=== PATIENT | male | born 1955 | race Caucasian/White ===

== ENCOUNTER 2021-04-25 08:06 | Emergency (ER) | payer BC ==
--- NOTE | 2021-04-25 08:32 | EDM.PDOC ---
ED HPI GENERAL MEDICAL PROBLEM - General Chief Complaint: Chest Pain Stated Complaint: CHEST PAIN Time Seen by Provider: 04/25/21 08:17 Source of Information: Reports: Patient History Limitations: Reports: No Limitations - History of Present Illness INITIAL COMMENTS - FREE TEXT/NARRATIVE: Patient is a 65-year-old male presents today for dizziness and not feeling right. States around 630 is morning he felt not right in his body and he felt dizziness and nausea. When asked he said he felt more lightheaded and dizzy his room was not spinning. States when he stood up he felt that the lightheadedness got worse. Denies any chest pain abdominal pain have any vomiting just nausea. Denies any decreased p.o. intake any diarrhea or other symptoms. - Related Data Allergies Allergy/AdvReac Type Severity Reaction Status Date / Time No Known Allergies Allergy Verified 04/25/21 08:12 Home Meds: Home Meds Ascorbate Calcium [Vitamin C] 1 tab PO DAILY 07/27/14 [History] Calcium Carb,Cit/D3/Phytostrol [Citracal D + Heart Health] 1 tab PO DAILY 07/27/14 [History] Glucosam/Chond/Collagen/Hyalur [Glucosamine Chondroitin] 1 tab PO DAILY 07/27/14 [History] Past Medical History - Past Health History Medical/Surgical History: Denies Medical/Surgical History - Infectious Disease History Infectious Disease History: Reports: Chicken Pox, Measles, Mumps ED ROS GENERAL - Review of Systems Review Of Systems: See Below Constitutional: Reports: No Symptoms HEENT: Reports: No Symptoms Respiratory: Reports: No Symptoms Cardiovascular: Reports: No Symptoms Endocrine: Reports: No Symptoms GI/Abdominal: Reports: No Symptoms : Reports: No Symptoms Musculoskeletal: Reports: No Symptoms Skin: Reports: No Symptoms Neurological: Reports: Dizziness Psychiatric: Reports: No Symptoms Hematologic/Lymphatic: Reports: No Symptoms Immunologic: Reports: No Symptoms ED EXAM, DIZZINESS - Physical Exam Exam: See Below Exam Limited By: No Limitations General Appearance: Alert, WD/WN, No Apparent Distress Eye Exam: Bilateral Eye: EOMI, PERRL Head Exam: Atraumatic Vertigo: No: reproducible Neck: Normal Inspection, Supple Respiratory/Chest: No Respiratory Distress, Lungs Clear, Normal Breath Sounds Cardiovascular: Normal Peripheral Pulses, Regular Rate, Rhythm GI/Abdominal: Normal Bowel Sounds, Soft, Non-Tender Neurological: Alert, Normal Mood/Affect, CN II-XII Intact, Oriented x 3 Back Exam: Normal Inspection Extremities: Normal Inspection, Normal Range of Motion, Non-Tender Psychiatric: Normal Affect #1 Interpretation EKG Date: 04/25/21 Time: 08:06 Rhythm: NSR Rate (Beats/Min): 73 ST-T: Normal Course - Vital Signs Last Recorded V/S: Last Vital Signs Temp 97.0 F 04/25/21 08:13 Pulse 73 04/25/21 08:13 Resp 18 04/25/21 08:13 BP 148/98 H 04/25/21 08:13 Pulse Ox 98 04/25/21 08:13 Orthostatic Blood Pressure [ 144/93 Standing] Orthostatic Blood Pressure [ 152/94 Sitting] Orthostatic Blood Pressure [ 135/79 Supine] - Orders/Labs/Meds Orders: Active Orders 24 hr Category Date Time Status Orthostatic Vital Signs [RC] ASDIRECTED Care 04/25/21 08:28 Active Labs: Laboratory Tests 04/25/21 04/25/21 04/25/21 Range/Units 08:15 08:20 08:20 WBC 7.23 (4.0-11.0) K/uL RBC 5.48 (4.50-5.90) M/uL Hgb 16.2 (13.0-17.0) g/dL Hct 47.8 (38.0-50.0) % MCV 87.2 (80.0-98.0) fL MCH 29.6 (27.0-32.0) pg MCHC 33.9 (31.0-37.0) g/dL RDW Std Deviation 44.6 (28.0-62.0) fl RDW Coeff of [place] 14 (11.0-15.0) % Plt Count 183 (150-400) K/uL MPV 9.10 (7.40-12.00) fL Neut % (Auto) 54.9 (48.0-80.0) % Lymph % (Auto) 31.7 (16.0-40.0) % [place] % (Auto) 8.4 (0.0-15.0) % Eos % (Auto) 4.6 (0.0-7.0) % Baso % (Auto) 0.4 (0.0-1.5) % Neut # (Auto) 4.0 (1.4-5.7) K/uL Lymph # (Auto) 2.3 (0.6-2.4) K/uL Valencia # (Auto) 0.6 (0.0-0.8) K/uL Eos # (Auto) 0.3 (0.0-0.7) K/uL Baso # (Auto) 0.0 (0.0-0.1) K/uL Nucleated RBC % 0.0 /100WBC Nucleated RBCs # 0 K/uL Sodium 142 (136-148) mmol/L Potassium 3.9 (3.5-5.1) mmol/L Chloride 105 (98-107) mmol/L Carbon Dioxide 26.2 (21.0-32.0) mmol/L BUN 9 (7.0-18.0) mg/dL Creatinine 1.0 (0.8-1.3) mg/dL Est Cr Clr Drug Dosing 81.91 mL/min Estimated GFR (MDRD) > 60.0 ml/min Glucose 113 H (74-106) mg/dL Lactic Acid (0.4-2.0) mmol/L Calcium 9.2 (8.5-10.1) mg/dL Phosphorus 2.6 (2.6-4.7) mg/dL Magnesium 2.4 (1.8-2.4) mg/dL Total Bilirubin 0.4 (0.2-1.0) mg/dL AST 23 (15-37) IU/L ALT 31 (14-63) IU/L Alkaline Phosphatase 87 (46-116) U/L Creatine Kinase 111 (26-308) U/L Troponin I < 0.050 (0.000-0.056) ng/mL Total Protein 8.1 (6.4-8.2) g/dL Albumin 3.6 (3.4-5.0) g/dL Globulin 4.5 H (2.6-4.0) g/dL Albumin/Globulin Ratio 0.8 L (0.9-1.6) Lipase 126 (73-393) U/L SARS-CoV-2 RNA (LYNSEY) NEGATIVE (NEGATIVE) 04/25/21 Range/Units 09:07 WBC (4.0-11.0) K/uL RBC (4.50-5.90) M/uL Hgb (13.0-17.0) g/dL Hct (38.0-50.0) % MCV (80.0-98.0) fL MCH (27.0-32.0) pg MCHC (31.0-37.0) g/dL RDW Std Deviation (28.0-62.0) fl RDW Coeff of Kat[place] (11.0-15.0) % Plt Count (150-400) K/uL MPV (7.40-12.00) fL Neut % (Auto) (48.0-80.0) % Lymph % (Auto) (16.0-40.0) % Valencia % (Auto) (0.0-15.0) % Eos % (Auto) (0.0-7.0) % Baso % (Auto) (0.0-1.5) % Neut # (Auto) (1.4-5.7) K/uL Lymph # (Auto) (0.6-2.4) K/uL Valencia # (Auto) (0.0-0.8) K/uL Eos # (Auto) (0.0-0.7) K/uL Baso # (Auto) (0.0-0.1) K/uL Nucleated RBC % /100WBC Nucleated RBCs # K/uL Sodium (136-148) mmol/L Potassium (3.5-5.1) mmol/L Chloride (98-107) mmol/L Carbon Dioxide (21.0-32.0) mmol/L BUN (7.0-18.0) mg/dL Creatinine (0.8-1.3) mg/dL Est Cr Clr Drug Dosing mL/min Estimated GFR (MDRD) ml/min Glucose (74-106) mg/dL Lactic Acid 1.7 (0.4-2.0) mmol/L Calcium (8.5-10.1) mg/dL Phosphorus (2.6-4.7) mg/dL Magnesium (1.8-2.4) mg/dL Total Bilirubin (0.2-1.0) mg/dL AST (15-37) IU/L ALT (14-63) IU/L Alkaline Phosphatase (46-116) U/L Creatine Kinase (26-308) U/L Troponin I (0.000-0.056) ng/mL Total Protein (6.4-8.2) g/dL Albumin (3.4-5.0) g/dL Globulin (2.6-4.0) g/dL Albumin/Globulin Ratio (0.9-1.6) Lipase (73-393) U/L SARS-CoV-2 RNA (LYNSEY) (NEGATIVE) - Re-Assessments/Exams Free Text/Narrative Re-Assessment/Exam: 04/25/21 10:58 Patient labs EKG reviewed. Patient never had chest pain while he was here just felt lightheaded with the orthostatics within normal limits. We also did a DVT study did show SVT patient started just to take Motrin as needed and patient will follow up with his PMD. Patient x-ray shows haziness however he recently wa s on antibiotics for pneumonia as could be residual from that patient has no white count no productive cough or fevers. Patient Covid also negative. Pt satting 100% on room air and looks well Departure - Departure Time of Disposition: 10:59 Disposition: Home, Self-Care 01 Condition: Good Clinical Impression: Lightheadedness, Thrombophlebitis - Discharge Information *PRESCRIPTION DRUG MONITORING PROGRAM REVIEWED*: Not Applicable *COPY OF PRESCRIPTION DRUG MONITORING REPORT IN PATIENT BRIA: Not Applicable Instructions: Dizziness, [id number], Thrombophlebitis Referrals: Zhao Casey MD [Primary Care Provider] - Forms: ED Department Discharge Additional Instructions: You were seen today for feeling lightheaded. We did labs EKG x-rays and also did a DVT study to rule out any clots in your legs. Labs and x-rays were normal your x-ray has some haziness but this could be due to some residual from the previous pneumonia you were treated for earlier. Your DVT study did show a superficial venous thrombosis which is with dermatitis and infection of your vein in your legs you can take Motrin for as needed. Recommend you follow-up to primary care physician and also a director of guidance in public schools as needed we have left numbers below for you to follow-up. The following information is given to patients seen in the emergency department who are being discharged to home. This information is to outline your options for follow-up care. We provide all patients seen in our emergency department wit h a follow-up referral. The need for follow-up, as well as the timing and circumstances, are variable depending upon the specifics of your emergency department visit. If you don't have a primary care physician on staff, we will provide you with a referral. We always advise you to contact your personal physician following an emergency department visit to inform them of the circumstance of the visit and for follow-up with them and/or the need for any referrals to a consulting specialist. The emergency department will also refer you to a specialist when appropriate. This referral assures that you have the opportunity for follow-up care with a specialist. All of these measure are taken in an effort to provide you with optimal care, which includes your follow-up. Under all circumstances we always encourage you to contact your private physician who remains a resource for coordinating your care. When calling for follow-up care, please make the office aware that this follow-up is from your recent emergency room visit. If for any reason you are refused follow-up, please contact the [facility] Emergency Department at and asked to speak to the emergency department charge nurse. Please follow up with your primary care physician. If you do not have a primary care physician, see below: [facility] [address] [place] [id number] [facility] [address] [place] [id number] [facility] [address] [place] [id number] Sepsis Event Note (ED) - Evaluation Sepsis Screening Result: No Definite Risk - Focused Exam Vital Signs: Vital Signs Temp Pulse Resp BP Pulse Ox 04/25/21 08:13 97.0 F 73 18 148/98 H 98 - My Orders Last 24 Hours: My Active Orders 04/25/21 08:28 Orthostatic Vital Signs [RC] ASDIRECTED - Assessment/Plan Last 24 Hours: My Active Orders 04/25/21 08:28 Orthostatic Vital Signs [RC] ASDIRECTED Plan: Patient is a 65-year-old male brought in today for dizziness and not feeling like himself. Patient has no chest pain. Patient EKG is sinus rhythm. On exam patient denies any signs of vertigo but does feel more lightheaded when he stands up. Will obtain labs EKG orthostatic blood pressure.
--- NOTE | 2021-04-25 09:15 | CR ---
Indication: Dizziness Comparison: None available. Technique: Single AP view chest Findings: There is hyperinflation and chronic interstitial change. There is questionable mild blunting of the costophrenic angles which may represent minimal pleural effusions with adjacent compressive atelectasis. There is mild central bronchial thickening. The cardiomediastinal silhouette is within normal limits. The bony thorax is grossly intact. Impression: Hyperinflation and chronic interstitial changes with questionable mild blunting of the left costophrenic angle which may represent a pleural effusion with adjacent compressive atelectasis. Dictated by Reymundo Godinez MD @ 04/25/2021 9:13:25 AM (Electronically Signed)
[2021-04-25 09:20] LABS: BLOOD UREA NITROGEN,BUN 9 mg/dL (7.0-18.0); CARBON DIOXIDE,CO2 26.2 mmol/L (21.0-32.0); CHLORIDE,CL 105 mmol/L (98-107); GLUCOSE RANDOM 113 mg/dL (74-106); LIPASE 126 U/L (73-393); POTASSIUM,K 3.9 mmol/L (3.5-5.1); SODIUM,NA 142 mmol/L (136-148)
--- NOTE | 2021-04-25 10:15 | US ---
INDICATION: Lower right leg pain. TECHNIQUE: Grayscale two-dimensional ultrasound without and with compression as well as color-flow and spectral Doppler of the lower extremity veins bilaterally. COMPARISON: None. FINDINGS: At the site of patient lower right leg pain, and acutely thrombosed superficial vein is demonstrated. Normal compressibility of and flow within the common femoral, superficial femoral, popliteal, posterior tibial, profunda, and greater saphenous veins is demonstrated bilaterally. No thrombus is identified. IMPRESSION: 1. Acute SVT in the anteromedial aspect of the lower right leg at the site of patient`s pain. 2. Negative for DVT in both legs. Dictated by Siddharth Montenegro MD @ 04/25/2021 10:14:23 AM (Electronically Signed)
== END 2021-04-25 11:43 | disposition home or self-care (01) ==
LOC: MW.ED 08:06
DX: R42 Dizziness and giddiness (principal); I80.9 Phlebitis and thrombophlebitis of unspecified site; Z20.822 Contact with and (suspected) exposure to COVID-19
CPT/HCPCS: 36415; 71045; 71045-26; 80053; 82550; 83605; 83690; 83735; 84100; 84484; 85025; 93005; 93970; 93970-26; 99284-25; U0002

== ENCOUNTER 2023-06-04 06:42 | Day surgery (SDC) | payer BC ==
[~2023-06-04 06:42] MED LIST: Lactated Ringers 1,000 ML IV SCH; ceFAZolin 2 GM in Sodium Chloride 0.9% 50 ML IV ONE
[2023-06-04] MEDS ORDERED: Glycopyrrolate 0.2 MG/ML SDV IVPUSH ONE (06:43)
[2023-06-04] MEDS ORDERED: ePHEDrine 50 MG/ML SDV IV ONE (06:43)
[2023-06-04] MEDS ORDERED: fentaNYL 50 MCG/ML SDV IVPUSH PRN (07:19)
[2023-06-04] MEDS ORDERED: Ondansetron 4 MG/2 ML SDV IVPUSH PRN (07:19)
[2023-06-04] MEDS ORDERED: droPERidol 5 MG/2 ML SDV IVPUSH PRN (07:19)
[2023-06-04] MEDS ORDERED: Naloxone 0.4 MG/ML SDV IVPUSH PRN (07:19)
[2023-06-04] MEDS ORDERED: Metoclopramide 10 MG/2 ML SDV IVPUSH PRN (07:19)
[2023-06-04] MEDS ORDERED: HYDROmorphone 1 MG/ML Syringe IVPUSH PRN (07:19)
[2023-06-04] MEDS ORDERED: Morphine 2 MG/ML SYRINGE IVPUSH PRN (07:19)
[2023-06-04] MEDS ORDERED: Albuterol 0.083% 2.5 MG/3 ML Neb Soln NEB PRN (07:19)
[2023-06-04] MEDS ORDERED: Ropivacaine 0.5% 5 MG/ML 30 ML SDV ONE (07:38)
[2023-06-04] MEDS ORDERED: Morphine 10 MG/ML SDV ONE (07:39)
[2023-06-04] MEDS ORDERED: fentaNYL 250 MCG/5 ML SDV ONE (07:39)
[2023-06-04] MEDS ORDERED: dexmedeTOMIDine HCl 200 MCG/2 ML SDV ONE (07:39)
[2023-06-04] MEDS ORDERED: Propofol 200 MG/20 ML SDV ONE (07:39)
[2023-06-04] MEDS ORDERED: Dexamethasone 4 MG/ML 5 ML MDV ONE (07:40)
[2023-06-04] MEDS ORDERED: Ketorolac 30 MG/ML SDV ONE (07:40)
[2023-06-04] MEDS ORDERED: Ondansetron 4 MG/2 ML SDV ONE (07:40)
[2023-06-04] MEDS ORDERED: Rocuronium Bromide 50 MG/5 ML Syringe ONE (07:40)
[2023-06-04] MEDS ORDERED: Bupivacaine 0.5% 30 ML SDV ONE (07:41)
[2023-06-04] MEDS ORDERED: ceFAZolin 1 GM Vial ONE (07:41)
[2023-06-04] MEDS ORDERED: Water For Injection, Sterile 40 ML ONE (07:44)
[2023-06-04] MEDS ORDERED: Acetaminophen/HYDROcodone 325-5 MG Tab PO PRN (09:20)
[2023-06-04] MEDS ORDERED: Morphine 4 MG/ML Syringe IVPUSH PRN (09:20)
[2023-06-04] MEDS ORDERED: Lactated Ringers 1,000 ML IV SCH (09:30)
== END 2023-06-04 11:18 | disposition home or self-care (01) ==
LOC: MW.SDS 06:42
PROVIDERS: ATTEND Surgery
DX: K40.90 Unilateral inguinal hernia, without obstruction or gangrene, not specified as recurrent (principal); J98.11 Atelectasis; K21.9 Gastro-esophageal reflux disease without esophagitis; I10 Essential (primary) hypertension; G47.33 Obstructive sleep apnea (adult) (pediatric); Z79.899 Other long term (current) drug therapy; Z98.890 Other specified postprocedural states; Z72.0 Tobacco use
CPT/HCPCS: 49505; J0131; J0665; J0690; J1100; J1885; J2270; J2405; J2704; J2795; J3010; J7120; J3490